=== PATIENT | female | born 1985 | race Caucasian/White ===

== ENCOUNTER 2020-11-22 13:53 | Emergency (ER) | payer OTHER ==
[~2020-11-22] VITALS: Ht 160 cm; Wt 52.2 kg
--- NOTE | 2020-11-22 14:49 | NUR ---
Patient discharged to home in stable condition. Written and verbal after care instructions given. Patient verbalizes understanding of instructions. Stressed follow up or return to ER for worsening s/s.
== END 2020-11-22 14:50 | disposition home or self-care (01) ==
LOC: ER 13:53
DX: S00.83XA Contusion of other part of head, initial encounter (principal); W51.XXXA Accidental striking against or bumped into by another person, initial encounter; Y92.89 Other specified places as the place of occurrence of the external cause; R51.9 Headache, unspecified
CPT/HCPCS: 70450; A4663